=== PATIENT | female | born 1990 | race Hispanic/Latino ===

== ENCOUNTER 2025-05-23 05:49 | Emergency (ER) | payer SELFPAY ==
[~2025-05-23] VITALS: Ht 162.6 cm; Wt 95.3 kg
[~2025-05-23 05:49] MED LIST: IBUP-2829 PO; PREN1TAB80 PO; ZANTAC PO
--- NOTE | 2025-05-23 05:57 | NUR ---
[facility] CALLED FOR DOG BITE REPORT, INSTRUCTED TO TELL PATIENT TO STOP BY [facility] AFTER TO MAKE A REPORT. PATIENT INSTRUCTED, PATIENT AGREED.
--- NOTE | 2025-05-23 06:13 | ERN ---
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 Patient was bit by a large gentleman Moreno dog which was brown and black in color and sustained multiple puncture wounds to the left leg. Small amount of oozing from the largest puncture wound on the medial aspect of the calf. This happened a few hours prior to the presentation and after she talked to her mother she decided to come in to the ER for further evaluation She appeared extremely anxious. Patient did not know the optometrist president/practice owner of the dog. It is also unclear if the dog is a stray dog . Temperature 98.3 pulse 127 respirations 20 blood pressure 143/98 with a pulse oximetry of 100% on room air Allergies: Coded Allergies: Penicillins (Verified Allergy, Unknown, 04/05/14) Home Meds Active Scripts Doxycycline Monohydrate (Doxycycline Monohydrate) 100 Mg Tablet, 1 TAB PO BID for 10 Days, #20 TAB 0 Refills Prov:IRAIS JAMESON MD 05/23/25 Ibuprofen (Motrin/Advil) 600 Mg Tab, 600 MG PO Q 8 H , #15 TAB Prov:MAYCOL DUENAS Jr., MD 05/11/15 Reported Medications Vits W-Ca,Fe,FA(<1Mg) ( Vitamins) 1 Each Tablet, 1 EACH PO DAILY, TAB 1 Refill 04/15/15 [Zantac] No Conflict Check, PO BID 06/02/14 Past Medical History Past Medical History: No Pertinent History Surgical History: Cholecystectomy Family History: Negative Social History: Negative LMP: May 15, 2025 RN Note Reviewed/Agreed w/PFSH: Yes Review of System Dictation Constitutional: Negative for fever,chills, and weight loss Eyes: Negative for injury, pain,redness, and discharge ENT: Negative for injury,pain or swelling Cardiovascular: Negative for chest pain, palpitations, and edema Respiratory: Negative for shortness of breath, cough, and wheezing, Abdomen/GI: Negative for abdominal pain, nausea, vomiting, diarrhea, and constipation Back: Negative for injury and pain : Negative for injury, bleeding and discharge MS/Extremity: Negative for injury and deformity Skin: Negative for rash, and discoloration positive for dog bite and small puncture wounds in the left lower leg. Neuro: Negative for headache, weakness, numbness, tingling, and seizure Psych: Negative for suicide ideation, homicidal ideation, and hallucinations Initial Vital Sign VS Vital Signs Date Time Temp Pulse Resp B/P (MAP) Pulse Ox O2 Delivery O2 Flow Rate FiO2 05/23/25 05:50 98.2 127 20 143/98 100 Room Air 05/23/25 06:46 0 21 Physical Exam Dictation General: awake, alert, NAD morbidly obese Head/Face: Normocephalic, atraumatic Eyes: PERRL, EOMI, vision at baseline ENT: oral cavity clear, TMs clear, no signs of infection Neck: Trachea midline, supple, no nuchal rigidity Cardiovascular: RRR, normal S1/S2, No MRGs, no JVD Respiratory: CTAB, no respiratory distress, No rales or wheezes Abdomen: Soft, non-tender, non-distended, normal bowel sounds, no guarding or rebound. Skin: Warm, dry, normal turgor, no rash left leg [id number] small areas of puncture wounds only. No cellulitis or surrounding induration. MS/Extremity: Pulses equal, no cyanosis, neurovascular intact, FROM Neuro: COAx4, GCS 15, strength 5/5, CN 2-12 intact, normal cerebellar exam, normal gait, Psych: Normal behavior, mood, and affect normal Extremities-trace edema without any palpable cords, Homans sign is negative Results (Laboratory/Radiology) Laboratory/Radiology Laboratory Tests Test 05/23/25 06:33 Urine HCG, Qualitative NEGATIVE (NEGATIVE) Labs Reviewed?: Yes ED Course ED Course Orders Procedure Category Date Status Time Tetanus,Diphtheria PHA 05/23/25 Complete Tox [Adult] (Diphther 06:00 ,Urine Test LAB 05/23/25 Complete 06:30 Current Medications Medications (Trade) Dose Ordered Sig/Mile Route PRN Reason Start Time Stop Time Status Last Admin Dose Admin Tetanus/ Diphtheria Toxoids Adsorbed (DiphthERIA-teTANUS TOXOID [ADULT]/ DECAVAC) 0.5 ml ONCE ONCE IM 05/23/25 06:00 05/23/25 06:01 DC 05/23/25 06:14 Vital Signs Date Time Temp Pulse Resp B/P (MAP) Pulse Ox O2 Delivery O2 Flow Rate FiO2 05/23/25 06:46 98.4 100 18 136/78 98 Room Air* 0 21 05/23/25 05:50 98.2 127 20 143/98 100 Room Air We will perform diagnostic labs, and administer medications according to the patient's complaint. Once the results are available, will review and personally interpreted the labs to rule out any acute life-threatening emergency the trach require immediate intervention and treatment. I will then re-evaluate the patient after treatment and diagnostic exams have return to determine whether the patient requires any further testing, can safely be discharged home or need further admission to hospital for additional treatment and evaluation. Tetanus shot was given. Wound thorough cleansing. Urine test is pending 6:45 a.m. urine test is negative patient will be discharged to home on doxycycline as patient has penicillin allergy Medical Decision Making MDM Differential diagnosis: Skin puncture wounds-superficial, bite wounds of the dog, nail bite, superimposed infection from dog saliva Rationale: Tests considered and ordered secondary to shared decision making include: Previous outside records reviewed: Old ER visits. Risk of complication and/or morbidity or mortality of patient management: None Medications-Per medication reconciliation Need for hospitalization: Patient does not meet criteria for hospitalization. Need for emergency major/minor surgery: No There are no social concerns with this patient. Prescription drug management Prescriptions will include symptomatic care Patient's prior external medical records from other ER visits were reviewed by me as indicated. Prior testing and results from previous visits were reviewed. Prior tests were taken into account with medical decision making and resource utilization, independent historian/historians were used to obtain complete medical history. I independently interpreted the test that were performed, results were reviewed by me and considered findings on radiology if ordered. Medical management and examination interpretation discussions were had by me with other qualified healthcare professionals as indicated for the patient's care. Procedure Procedure Dictation: Procedure note-puncture wounds repair Performing Physician -Jarod PAIGECP Igayhijali-slzk-buhau lower leg small puncture wounds measuring 1-2 mm in size Premedication and anesthesia-none Procedure-extensive saline irrigation was done and the laceration was cleaned thoroughly and prepped. After thorough cleansing, sterile dressing was applied. The largest puncture wound was also small to suture. Patient tolerated the procedure extremely well without any immediate complicati ons. Wound Location: lower extremity Wound's Depth, Shape: into muscle Wound Explored: contaminated Betadine Prep?: Yes Wound Debrided: minimal Sterile Dressing Applied?: Yes Problem List Problem List: (1) Dog bite of left lower leg (2) Puncture wound of lower leg DX & DISP Disposition: Discharge Departure Impression: Primary Impression: Dog bite of left lower leg Additional Impression: Puncture wound of lower leg Condition: Stable Scripts Doxycycline Monohydrate (Doxycycline Monohydrate) 100 Mg Tablet 1 TAB PO BID for 10 Days, #20 TAB 0 Refills Prov: IRAIS JAMESON MD 05/23/25 Additional Instructions: Patient and the caregiver have been informed of all the diagnostic tests and the imaging conducted during the today's visit to the emergency room and has verba lized understanding of the results I have personally reviewed and interpreted all diagnostic exams performed here in the ER today as well as the vital signs documented by the nursing staff. The patient is now being discharged to home and should follow up with the primary care physician or the specialist as directed by the ER staff. Follow-up with primary care provider in 1 to 2 days. Take medications as directed here in the emergency room. Okay to continue home medications unless otherwise discussed during your visit in the emergency room today. Return to your nearest emergency room if symptoms worsen or if there is no improvement. Call 911 if you need immediate assistance. Take Tylenol or Motrin [id number] as needed and if no contraindications are present. Increase oral hydration. A wound culture or urine culture was ordered here in the emergency room department please follow-up with primary care provider and advise them to get repeat ports from our facility. If you had any Nitesh wrap/splints t hat were applied here, please do not remove them until you see your primary care or specialty. Patient was instructed to stop by the PD [place] to file a police report on the dog bite. Referrals: SELF,REFERRAL (PCP) IRAIS JAMESON MD May 23, 2025 06:13
--- NOTE | 2025-05-23 06:14 | NUR ---
WOUND CARE, IRRIGATED DOG BITE WITH SKINTEGRITY, RINSED WITH STERILE SALINE, DRIED, COVERED WITH BANDAIDS, PATIENT TOLERATED WELL.
[2025-05-23] MEDS ORDERED: DOXY100T21 PO (06:45)
[2025-05-23 06:46] VITALS: BP 136/78; PULSE 100; RESP 18; TEMP 98.5; O2SAT 98
== END 2025-05-23 06:59 | disposition home or self-care (01) ==
LOC: EDH 05:49
DX: S81.832A Puncture wound without foreign body, left lower leg, initial encounter (principal); Z88.0 Allergy status to penicillin; Z90.49 Acquired absence of other specified parts of digestive tract; W54.0XXA Bitten by dog, initial encounter; Y93.89 Activity, other specified; Y92.89 Other specified places as the place of occurrence of the external cause; Y99.8 Other external cause status
CPT/HCPCS: 81025; 90471; 90714; 99283